=== PATIENT | female | born 1940 | race Caucasian/White ===

== ENCOUNTER 2020-09-30 13:23 | Emergency (ER) | payer MEDICARE, MEDICAID ==
[~2020-09-30] VITALS: Ht 144.8 cm; Wt 61.8 kg
[2020-09-30 13:42] VITALS: BP 190/96
[2020-09-30] MEDS ORDERED: triamcinolone acetonide 40mg/ml inj IM ONE (14:25)
[2020-09-30] MEDS ORDERED: HYDR28CR14 TOP (14:30)
== END 2020-09-30 15:14 | disposition home or self-care (01) ==
LOC: ER 13:24
DX: L30.9 Dermatitis, unspecified (principal); I10 Essential (primary) hypertension; Z79.899 Other long term (current) drug therapy
CPT/HCPCS: 96372; 99283; J3301